=== PATIENT | female | born 1940 | race Caucasian/White ===

== ENCOUNTER 2017-08-08 11:52 | Emergency (ER) | payer OTHER, MEDICARE ==
--- NOTE | 2017-08-08 12:13 | EDPHY ---
H & P Time Seen by Provider: 08/08/17 11:59 HPI/ROS: Chief Complaint: Right thumb injury HPI: 77-year-old woman sustained a crush injury to her right thumb when she got caught in a car door 3 days ago. She was seen at urgent care 2 days ago and diagnosed with a possible fracture of her thumb. They also thought that she had an infection. They started her on Keflex. She told that she is allergic to Keflex so they told her to also take methylprednisolone. Patient started the Keflex and started breaking out in hives. She discontinued medication yesterday. She still continuing to have pain. She did not have a splint in place but had a soft dressing in place. She has continued to have pain. She is presenting today with concerns about possible diagnosis and evaluation to whether she can't needs to continue to take antibiotics. ROS: 10 point Review of Systems is negative except as noted in the HPI. Social History: No smoking, no alcohol, no recreational drug use Family History: non-contributory Physical Exam: General: Awake, alert, no acute distress Right hand: She has tenderness over the distal phalanx of her right thumb. There is a subungual hematoma. There is ecchymosis with out any significant erythema. There is tenderness over the distal phalanx. There is no discoloration or abnormality over the proximal phalanx or the hand. Sensations intact. She has full flexion extension strength. Skin: No rash Constitutional: Initial Vital Signs Temperature (C) 36.6 C 08/08/17 12:17 Heart Rate 78 08/08/17 12:17 Respiratory Rate 18 08/08/17 12:17 Blood Pressure 143/80 H 08/08/17 12:17 O2 Sat (%) 97 08/08/17 12:17 O2 Delivery Mode Room Air Allergies/Adverse Reactions: cephalexin [From Keflex] Allergy (Verified 08/08/17 12:14) hydromorphone [From Dilaudid] Allergy (Verified 08/08/17 12:13) Penicillins Allergy (Verified 08/08/17 12:10) Sulfa (Sulfonamide Antibiotics) Allergy (Verified 08/08/17 12:13) Home Medications: Medication Instructions Recorded GABAPENTIN 08/08/17 Symabalta 08/08/17 Medical Decision Making - Diagnostics Imaging Results: Distal phalanx fracture Imaging: I viewed and interpreted images myself Procedures: Procedure: Nail trephination. Indication: Subungual hematoma. Anesthesia: None required Verbal consent was obtained from the patient to drain a subungual hematoma. The patient was prepped in the usual fashion. The subungual hematoma was drained with electrocautery. The subungual hematoma was drained successfully and there were no complications. The procedure was performed by myself. ED Course/Re-evaluation: 77-year-old with a crush injury right thumb 3 days ago. She does have some ecchymosis of the subungual hematoma. There is no evidence of infection at this time. She is requesting an x-ray to confirm whether there is a fracture or not. This has been ordered. I have drained hematoma. She has been placed in a aluminum foam volar splint by myself. She has good immobility with normal perfusion. She is comfortable. She will be referred for Hand surgery for follow-up. There is no indications for further antibiotics at this time she has been cautioned to return if the redness should worsen or for any concerns. Departure - Departure Disposition: Home, Routine, Self-Care Clinical Impression: Thumb fracture, Subungual hematoma Condition: Good Instructions: Subungual Hematoma (ED), Finger Fracture (ED) Additional Instructions: Alternate acetaminophen (1000 mg) with ibuprofen (400 mg) every 4 hours as needed for aches or pains. Keep the splint on until seen by Hand surgery. Return to the emergency department for increasing redness, increasing warmth, streaking up your hand, fevers, chills, or any other concerns. Referrals: Sparkle Self MD [Medical Doctor] - As per Instructions Mabel Lutz MD [Medical Doctor] - As per Instructions
[2017-08-08 12:20] VITALS: BP 143/80; PULSE 78; RESP 18; TEMP 98; O2SAT 97
== END 2017-08-08 13:06 | disposition home or self-care (01) ==
LOC: CED 11:52
PROC: 0H9QXZZ Drainage of Finger Nail, External Approach (ICD-10-PCS; principal; 2017-08-08)
DX: S62.524A Nondisplaced fracture of distal phalanx of right thumb, initial encounter for closed fracture (principal); S60.111A Contusion of right thumb with damage to nail, initial encounter; W23.1XXA Caught, crushed, jammed, or pinched between stationary objects, initial encounter
CPT/HCPCS: 11740; 73140; 99283; L3925